=== PATIENT | female | born 2000 | race Caucasian/White ===

== ENCOUNTER 2022-08-15 21:19 | Emergency (ER) | payer OTHER ==
[~2022-08-15] VITALS: Ht 170.2 cm; Wt 72.6 kg
[2022-08-15] MEDS ORDERED: AMOXICILLIN500 MG PO (22:27)
== END 2022-08-15 22:39 | disposition home or self-care (01) ==
LOC: ED 21:19
DX: J02.9 Acute pharyngitis, unspecified (principal); Z91.030 Bee allergy status
CPT/HCPCS: 36415; 86308; 87880; 99283

== ENCOUNTER 2023-07-01 19:45 | Emergency (ER) | payer OTHER ==
[~2023-07-01] VITALS: Ht 157.5 cm; Wt 80.0 kg
--- OUTSIDE RECORDS SUMMARY | ~2023-07-01 | XMS | Continuity of Care Document ---
Demographics + + + | Address | [address] | | | [place] [address] | + + + | Preferred Language | Unknown | + + + | Marital Status | Never | + + + | Episcopal Affiliation | Unknown | + + + | Race | White | + + + | Ethnic Group | Not or | + + + Author + + + | Author | [facility] | + + + | Organization | [facility] | + + + | Address | [address] | | | [place] [address] | + + + | Phone | | + + + Care Team Providers + + + + | Care Airport Tower Controller Name | Role | Phone | + + + + Unavailable | Unavailable | + + + + Unavailable | Unavailable | + + + + Allergies and Intolerances + + + + + + | date | description | facility | reaction | severity | + + + + + + | (no date) | Wasp venom | [facility] | (no reaction) | (no severity) | [facility] | | | + + + + + + Encounters No information. Functional Status No information. Immunizations No information. Medications + + + + | date | description | facility | + + + + | 2022-08-15 00:00 | AMOXICILLIN | [facility] | + + + + Problems + + + + | date | description | facility | + + + + | 2022-08-15 00:00 | Pharyngitis | [facility] | + + + + Procedures No information. Results/Labs +--------+--------+ +---------+--------+---------+ | test | date | facility | value | unit | notes | +--------+--------+ +---------+--------+---------+ + + | Result panel 1 | + + + + + + + + + | | 2022-08-15 | [facility] | NEGATIVE | (missing) | (missing) | | (unavailable | 21:45 [facility] | | | | + + + + + + + + + | Result panel 2 | + + + + + + + + + | | 2022-08-15 | [facility] | NEGATIVE | (missing) | (missing) | | (unavailable | 21:47 [facility] | | | | + + + + + + + Social History + + + + | date | description | facility | + + + + | 2022-08-15 00:00 | Unknown if ever smoked | [facility] | + + + + Vital Signs + + + +---------+ | date | measurement | value | units | + + + +---------+ | 2022-08-15 00:00 | BMI | 25.1 | kg/m2 | + + + +---------+ | 2022-08-15 00:00 | BP_diastolic | 77 | mmHg | + + + +---------+ | 2022-08-15 00:00 | BP_systolic | 113 | mmHg | + + + +---------+ | 2022-08-15 00:00 | heart_rate | 95 | /min | + + + +---------+ | 2022-08-15 00:00 | height_metric | 170.18 | cm | + + + +---------+ | 2022-08-15 00:00 | height_standard | 67 | in | + + + +---------+ | 2022-08-15 00:00 | o2_saturation | 99 | % | + + + +---------+ | 2022-08-15 00:00 | respiration_rate | 16 | /min | + + + +---------+ | 2022-08-15 00:00 | temperature_metric | 37.11 | C | | | | | | + + + +---------+ | 2022-08-15 00:00 | | 98.8 | F | | | temperature_standar | | | | | d | | | + + + +---------+ | 2022-08-15 00:00 | weight_metric | 72.57 | kg | + + + +---------+ | 2022-08-15 00:00 | weight_standard | 159.99 | lb | + + + +---------+ | 2022-08-15 00:00 | weight_standard | 160 | lb | + + + +---------+"
--- OUTSIDE RECORDS SUMMARY | ~2023-07-01 | XMS | Continuity of Care Document ---
Demographics + + + | Address | [address] | | | [place] [address] | + + + | Preferred Language | Unknown | + + + | Marital Status | Never | + + + | Jehovah'S Witness Affiliation | Unknown | + + + | Race | White | + + + | Ethnic Group | Not or | + + + Author + + + | Author | [facility] | + + + | Organization | [facility] | + + + | Address | [address] | | | [place] [address] | + + + | Phone | | + + + Care Team Providers + + + + | Care Channel Executive Name | Role | Phone | + [...] 2022-08-15 00:00 | AMOXICILLIN | [facility] | + + + + Problems + + + + | date | description | facility | + + + + | 2022-08-15 00:00 | Pharyngitis | [facility] | + + + + Procedures No [...] | Unknown if ever smoked | [facility] | + + + + Vital [...]
[~2023-07-01 19:45] MED LIST: AMOXICILLIN500 MG PO
[2023-07-01 21:02] VITALS: BP 108/68
== END 2023-07-01 21:00 | disposition home or self-care (01) ==
LOC: ED 19:45
DX: T63.441A Toxic effect of venom of bees, accidental (unintentional), initial encounter (principal); Z91.030 Bee allergy status
CPT/HCPCS: 99282

== ENCOUNTER 2023-11-11 22:15 | Emergency (ER) | payer OTHER ==
[~2023-11-11] VITALS: Ht 157.5 cm; Wt 83.3 kg
[2023-11-11 23:01] VITALS: BP 115/65
== END 2023-11-11 23:01 | disposition left against medical advice (07) ==
LOC: ED 22:15
DX: R05.9 Cough, unspecified (principal); Z53.29 Procedure and treatment not carried out because of patient's decision for other reasons
CPT/HCPCS: 99282

== ENCOUNTER 2023-11-19 17:17 | Emergency (ER) | payer OTHER ==
[~2023-11-19] VITALS: Ht 157.5 cm; Wt 83.8 kg
--- OUTSIDE RECORDS SUMMARY | 2023-11-19 18:24 | XMS ---
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 EJimena VISIT COUNT (12 MO.) [address] [place] [address] TOTAL 3 NOTE: Visits indicate total known visits. ED/UCC VISIT TRACKING (12 MO.) 11/19/2023 17:17 [facility] [place] TYPE: Emergency COMPLAINT: - LT LEG NUMBNESS 11/11/2023 22:16 [facility] [place] TYPE: Emergency COMPLAINT: - COUGHING DIAGNOSES: - Cough, unspecified - Procedure and treatment not carried out because of patient's decision for other reasons 07/01/2023 19:46 [facility] [place] TYPE: Emergency COMPLAINT: - BEE STING DIAGNOSES: - Bee allergy status - Toxic effect of venom of bees, accidental (unintentional), initial encounter INPATIENT VISIT TRACKING (12 MO.) No inpatient visits to display in this time frame [email or web address]: [email or web address]
[2023-11-19 20:49] LABS: BASOPHILS 0.9 % (0-2); HEMATOCRIT 40.4 % (35.0-50.0); HEMOGLOBIN 13.6 g/dL (12.0-18.0); LYMPHOCYTES 30.7 % (24-44); MCH 27.8 (27-36); MCHC 33.7 g/dl (30-36); MCV 82.6 fl (81-99); MONOCYTES 9.2 % (0-12); NEUTROPHILS 57.2 % (39-80); PLATELET COUNT 246 K/uL (140-440); RBC 4.89 M/ul (4.3-5.7); RDW 13.8 (10.5-15.0)
[2023-11-19 20:49] LABS: BILIRUBIN, URINE NEGATIVE (negative); BLOOD/HGB, URINE NEGATIVE (Negative); KETONE, URINE NEGATIVE (Negative); LEUK ESTERASE, URINE NEGATIVE (negative); NITRITE, URINE NEGATIVE (negative); PH, URINE 6.5 (5-7)
[2023-11-19 21:03] LABS: ALBUMIN/GLOBULIN RATIO 1.03 (1.1-2.4); ANION GAP 9.8 (7-21); BILIRUBIN, TOTAL 0.6 ng/dL (0.2-1.0); BUN/CREATININE RATIO 16.92 (6.0-28.6); CALCIUM 9.2 mg/dL (8.5-10.1); CREATININE, SERUM 0.65 mg/dL (0.55-1.02); POTASSIUM 3.8 mmol/L (3.5-5.1); PROTEIN, TOTAL 7.9 g/dL (6.4-8.2)
[2023-11-19 21:03] LABS: AMPHETAMINES, URINE NEGATIVE (NEGATIVE); BARBITURATES, URINE NEGATIVE (NEGATIVE); BENZODIAZEPINE, URINE NEGATIVE (NEGATIVE); BUPRENORPHINE, URINE NEGATIVE (NEGATIVE); CANNABINOID, URINE NEGATIVE (NEGATIVE); COCAINE, URINE NEGATIVE (NEGATIVE); ECSTASY, URINE NEGATIVE (NEGATIVE); FENTANYL, URINE NEGATIVE (NEGATIVE); METHADONE, URINE NEGATIVE (NEGATIVE); OPIATES, URINE NEGATIVE (NEGATIVE); OXYCODONE, URINE NEGATIVE (NEGATIVE); PHENCYCLIDINE, URINE NEGATIVE (NEGATIVE)
[2023-11-19 21:23] VITALS: BP 125/74
== END 2023-11-19 21:24 | disposition home or self-care (01) ==
LOC: ED 17:17
PROVIDERS: Emergency Medicine
DX: B34.9 Viral infection, unspecified (principal); R20.2 Paresthesia of skin; Z91.030 Bee allergy status
CPT/HCPCS: 36415; 71046; 80053; 80307; 81003; 84703; 85025; 99284

== ENCOUNTER 2024-07-27 23:47 | Emergency (ER) | payer OTHER ==
[~2024-07-27] VITALS: Ht 157.5 cm; Wt 84.3 kg
--- OUTSIDE RECORDS SUMMARY | 2024-07-27 23:49 | XMS ---
PreManage Notification: TANMAY STOLL Security Fire Control Assistant Events 1 event(s) in the past 18 months Most recent security events: Elopement at [facility] 11/11/2023 22:16 - Patient eloped with IV in place. - Patient eloped before treatment completed. - Patient with suicidal and/or homicidal ideations eloped. Details: Patient LWBS CRITERIA MET - Group Notification - [facility] - 2 Visits in 30 Days CARE PROVIDERS DARRYL WALKER [facility] 11/20/2023-Current PHONE: Unknown -[facility]+ Dentist: Public Health Dietitian [facility] PHONE: [phone] -Fredi- Dentist: Public Health Dietitian [facility] PHONE: [phone] -Scarlet- Dentist: Public Health Dietitian [facility] PHONE: [phone] BONESTEEL, [facility]/Center: [facility] ([facility]) PHONE: [phone] NANCY CALHOUN Nurse Practitioner Current PHONE: [phone] Javier has no Care Guidelines for this patient. Brooke VISIT COUNT (12 MO.) [address] Nasreen Cruz (Charli Augustin) TOTAL 4 NOTE: Visits indicate total known visits. ED/UCC VISIT TRACKING (12 MO.) 07/27/2024 23:47 [facility] [place] [facility] Emergency COMPLAINT: - HEAD INJURY 07/15/2024 16:22 [facility] Nancy RICHARDS (Charli [facility]) TYPE: Emergency DIAGNOSES: - Rash and other nonspecific skin eruption - Rash - shoulder pain 11/19/2023 17:17 [facility] [place] TYPE: Emergency COMPLAINT: - LT LEG NUMBNESS DIAGNOSES: - Anesthesia of skin - Bee allergy status - Paresthesia of skin - Viral infection, unspecified 11/11/2023 22:16 [facility] [place] TYPE: Emergency COMPLAINT: - COUGHING DIAGNOSES: - Cough, unspecified - Procedure and treatment not carried out because of patient's decision for other reasons INPATIENT VISIT TRACKING (12 MO.) No inpatient visits to display in this time frame [email or web address]
[2024-07-28 00:40] LABS: BASOPHILS 0.8 % (0-2); EOSINOPHILS 0.8 % (0-6); HEMATOCRIT 39.9 % (35.0-50.0); HEMOGLOBIN 13.5 g/dL (12.0-18.0); LYMPHOCYTES 18.8 % (24-44); MCH 28.2 (27-36); MCHC 33.8 g/dl (30-36); MCV 83.3 fl (81-99); MONOCYTES 8.1 % (0-12); NEUTROPHILS 71.5 % (39-80); PLATELET COUNT 252 K/uL (140-440); RBC 4.79 M/ul (4.3-5.7); RDW 13.9 (10.5-15.0)
[2024-07-28 00:48] LABS: BILIRUBIN, URINE NEGATIVE (negative); BLOOD/HGB, URINE NEGATIVE (Negative); KETONE, URINE NEGATIVE (Negative); LEUK ESTERASE, URINE NEGATIVE (negative); NITRITE, URINE NEGATIVE (negative)
[2024-07-28 00:57] LABS: ALBUMIN/GLOBULIN RATIO 1.08 (1.1-2.4); ALCOHOL, MEDICAL <3 ng/dL (<3); ALKALINE PHOSPHATASE 70 U/L (46-116); ALT (SGPT) 76 U/L (14-59); ANION GAP 13.5 (7-21); AST (SGOT) 25 U/L (15-37); BILIRUBIN, TOTAL 0.9 ng/dL (0.2-1.0); CALCIUM 9.2 mg/dL (8.5-10.1); CARBON DIOXIDE 29 mmol/L (21-32); CHLORIDE 102 mmol/L (98-107); CREATININE, SERUM 0.75 mg/dL (0.55-1.02); GLOMERULAR FILTRATION RATE,EST 113 mL/min (>60); POTASSIUM 3.5 mmol/L (3.5-5.1); PROTEIN, TOTAL 7.7 g/dL (6.4-8.2); UREA NITROGEN 12 mg/dL (7-18)
[2024-07-28 01:25] LABS: AMPHETAMINES, URINE NEGATIVE (NEGATIVE); BARBITURATES, URINE NEGATIVE (NEGATIVE); BENZODIAZEPINE, URINE NEGATIVE (NEGATIVE); BUPRENORPHINE, URINE NEGATIVE (NEGATIVE); CANNABINOID, URINE NEGATIVE (NEGATIVE); COCAINE, URINE NEGATIVE (NEGATIVE); ECSTASY, URINE NEGATIVE (NEGATIVE); FENTANYL, URINE NEGATIVE (NEGATIVE); METHADONE, URINE NEGATIVE (NEGATIVE); OPIATES, URINE NEGATIVE (NEGATIVE); OXYCODONE, URINE NEGATIVE (NEGATIVE); PHENCYCLIDINE, URINE NEGATIVE (NEGATIVE)
[2024-07-28 02:02] VITALS: BP 120/81
== END 2024-07-28 02:02 | disposition home or self-care (01) ==
LOC: ED 23:47
PROVIDERS: Internal Medicine
DX: S09.90XA Unspecified injury of head, initial encounter (principal); M54.2 Cervicalgia; M25.511 Pain in right shoulder; W18.30XA Fall on same level, unspecified, initial encounter; Z91.030 Bee allergy status
CPT/HCPCS: 36415; 70450; 70486; 72125; 73030; 80053; 80307; 81003; 84703; 85025; 99285-25; G0480